=== PATIENT | female | born 1935 | race Caucasian/White ===

== ENCOUNTER → 2016-10-06 | Outpatient (CLI) | payer MEDICARE ==
[2016-01-21 14:00] VITALS: BP 146/78
[~2016-10-06] MED LIST: ASPI81TA9 PO; CLOP75TA27 PO; CONTRAST GIVEN MC PRN; FOLI1TAB16 PO; IOHEXOL 300 MG/ML 75 ML VIAL IV ONE; LIPITOR80 MG PO; METH2.5T PO; METO25TA9 PO; OMEP20CA5 PO; PROAIR HFA8.5 GM IH; TIOT18CA IH
[2016-10-06 08:16] LABS: CREATININE 0.9 mg/dL (0.6-1.0); GFR 59.8
--- NOTE | 2016-10-06 11:41 | RAD ---
Exam performed: CT chest with contrast. History: History of lung cancer, follow-up exam. Date of service: 10/06/16. Comparison: CT chest from 04/27/16. Technique: Contiguous helical acquisitions are obtained through the chest during intravenous administration of 75 cc of Omnipaque 300. Sagittal and coronal reformatted images are obtained and reviewed. Findings: Redemonstration of a right upper lobe pleural-based mass with adjacent erosive changes and chronic fracture involving the right third rib with streaky linear opacities extending up to the right hilum. Previously seen large right suprahilar lymph node appears significantly decreased in size. There is significantly decreased mass effect and nodularity in the right main bronchus as well as a bronchus intermedius. There is continued encasement of the right upper lobe pulmonary artery secondary to the enlarged lymph node however the significantly improved due to decreased size of the lymph node. No new lymph nodes are seen. The remainder lungs are essentially clear. There are emphysematous changes in both lungs. There are prominent interstitial changes in the apical segment right lower lobe, new since previous study. The heart size is within limits of normal without pericardial effusion. Atheromatous aortic and coronary calcification. There is a calcified nodule in the right lower lobe. Small hiatal hernia. Abdominal aortic aneurysm status post stent graft placement. Sclerotic abnormalities involving the thoracic spine at T10 and L1 remains similar. Impression: 1. Significant decrease in size of the right suprahilar lymph node with improved nodularity and mass effect on the adjacent bronchus intermedius. 2. Right upper lobe mass extending to the periphery of the chest wall with sclerosis /erosion and chronic fracture of the right third rib remains unchanged. 3. Minimal prominence of interstitial markings in the apical segment right upper lobe. These could be related to post therapeutic changes, however continued follow-up to rule out possibility of lymphangitic spread of tumor although is considered less likely given other areas of improvement.
== END | disposition home or self-care (01) ==
LOC: CT 07:42
PROVIDERS: ATTEND Radiology Radiation Oncology
DX: C34.90 Malignant neoplasm of unspecified part of unspecified bronchus or lung (principal)
CPT/HCPCS: 36415; 71260; 82565; Q9967

== ENCOUNTER → 2017-04-24 | Outpatient (CLI) | payer MEDICARE ==
[2016-01-21 14:00] VITALS: BP 146/78
[~2017-04-24] MED LIST changes: +ASPI-612 PO; -ASPI81TA9 PO; -CLOP75TA27 PO; +CLOP75TA57 PO; -CONTRAST GIVEN MC PRN; +IOHEXOL 300 MG/ML 75 ML VIAL ONE; +METO-239 PO; -METO25TA9 PO
--- NOTE | 2017-04-24 14:22 | RAD ---
Indication lung malignancy. Follow-up. Axial images through the chest were obtained. 75 cc of Omnipaque 300 was administered. Comparison is made to the previous examination 10/06/2016. Imaging through the upper abdomen shows no acute finding. Aortic stent graft is noted. There is a small hiatus hernia. There is a density in the right breast, image 23 series 2. This may reflect glandular tissue. If mammography has not been recently performed this should be considered. There is some coronary artery calcification. The thoracic aorta appears unremarkable. Significant hilar or mediastinal adenopathy is not seen. There are underlying emphysematous changes. There is a parenchymal opacity in the right upper lobe, increased relative to the prior study and soft tissue fullness in the right hilum. While these may be secondary to postradiation changes recurrent tumor is not entirely excluded. An additional change in the chest is not seen. A definite acute finding in the chest is not seen. IMPRESSION: Increasing volume loss in the right upper lobe with associated soft tissue opacity. Increasing hilar fullness. While these may be secondary to post radiation changes recurrent tumor is not entirely excluded. Possible nodule right breast. If mammography has not been recently performed this should be considered PQRS Compliance Statement: One or more of the following individualized dose reduction techniques were utilized for this examination: 1. Automated exposure control 2. Adjustment of the mA and/or kV according to patient size 3. Use of iterative reconstruction technique
== END | disposition home or self-care (01) ==
LOC: CT 08:24
PROVIDERS: ATTEND Radiology Radiation Oncology
DX: C34.11 Malignant neoplasm of upper lobe, right bronchus or lung (principal); I10 Essential (primary) hypertension; Z92.3 Personal history of irradiation
CPT/HCPCS: 71260; Q9967

== ENCOUNTER → 2017-10-25 | Outpatient (CLI) | payer MEDICARE ==
[2017-10-25] MEDS: IOHEXOL 300 MG/ML 100ML VIAL. IV (08:41)
== END | disposition home or self-care (01) ==
LOC: CT 08:02
DX: C34.90 Malignant neoplasm of unspecified part of unspecified bronchus or lung (principal); J43.9 Emphysema, unspecified; K44.9 Diaphragmatic hernia without obstruction or gangrene; M41.85 Other forms of scoliosis, thoracolumbar region; I70.0 Atherosclerosis of aorta; I25.10 Atherosclerotic heart disease of native coronary artery without angina pectoris; Z92.3 Personal history of irradiation
CPT/HCPCS: 71260; Q9967

== ENCOUNTER → 2017-11-02 | Outpatient (CLI) | payer MEDICARE | END | disposition home or self-care (01) | LOC: KCIC MAMMO 08:04 | DX: N63.10 Unspecified lump in the right breast, unspecified quadrant (principal); N64.89 Other specified disorders of breast; Z92.3 Personal history of irradiation; Z85.118 Personal history of other malignant neoplasm of bronchus and lung | CPT/HCPCS: 76641; 77066 ==

== ENCOUNTER → 2018-04-03 | Outpatient (CLI) | payer MEDICARE, OTHER ==
[2016-01-21 14:00] VITALS: BP 146/78
[~2018-04-03] MED LIST changes: -IOHEXOL 300 MG/ML 75 ML VIAL IV ONE; -IOHEXOL 300 MG/ML 75 ML VIAL ONE
--- NOTE | 2018-04-03 13:11 | KCIC ---
Three-view bilateral hand dated 04/03/2018. No comparison available. Clinical data indication: Pain. Pain for 20 years. Evaluate arthritis. FINDINGS: 3 views of left hand show normal bony alignment. No displaced fracture. There is mild degenerative change of the first carpometacarpal joint and scaphotrapezial joint. Mild degenerative changes of the interphalangeal joints throughout. No periostitis or bone destruction. No erosive changes are seen. 3 views of the right hand show normal bony alignment. No displaced fracture. Mild degenerative change of the first carpometacarpal joint and scaphotrapezial joint. There is also mild degenerative change of the interphalangeal joints throughout and the MCP joint of the thumb. No erosive changes or periostitis. No bone destruction. IMPRESSION: 1. No acute radiographic abnormality. 2. Multifocal osteoarthrosis as described above. Electronically signed by: Helder Rushing MD (04/03/2018 1:08 PM) [id number]
== END | disposition home or self-care (01) ==
LOC: KCIC 11:47
PROVIDERS: ATTEND Internal Medicine Rheumatology
DX: M19.042 Primary osteoarthritis, left hand (principal); M19.041 Primary osteoarthritis, right hand; I10 Essential (primary) hypertension; E78.00 Pure hypercholesterolemia, unspecified; I25.10 Atherosclerotic heart disease of native coronary artery without angina pectoris; K21.9 Gastro-esophageal reflux disease without esophagitis; J43.2 Centrilobular emphysema; Z87.891 Personal history of nicotine dependence; Z85.118 Personal history of other malignant neoplasm of bronchus and lung
CPT/HCPCS: 73130

== ENCOUNTER → 2018-05-02 | Outpatient (CLI) | payer OTHER ==
[2016-01-21 14:00] VITALS: BP 146/78
[~2018-05-02] MED LIST changes: +AMLO5TAB7 PO; +BENZ-8 PO; +CONTRAST GIVEN. MC PRN; +FAMO40TA4 PO; +IOHEXOL 300 MG/ML 100ML VIAL. IV ONE; +TRAM50TA PO; +UMEC1DIS IH
--- NOTE | 2018-05-02 18:06 | RAD ---
Examination: CT CHEST W/CONTRAST History: LUNG CA S/P TREATMENT INJ 75ML OMNI 300 PREV SENT Comparison/Correlation: 10/25/2017 CT chest with contrast Findings: Axial images of the chest were obtained following 75 cc Omnipaque 300 IV. Sagittal and coronal reformatted images were provided. Extensive emphysematous involvement of the lung dhaliwal identified. Right upper lobe atelectasis and retained secretions noted. This atelectasis extends from the right hilum to the right lateral pleural and along the right mediastinum and hilar level. Associated destructive involvement of the right third rib and fourth rib again seen. Sclerosis of the right second rib also seen. This process measures up to 7.9 cm x 3 cm x 4.3 cm longitudinal. Thoracic aorta is unremarkable for age. No enlarged thoracic lymph nodes in the interval. Upper abdominal aortic stent graft is partially seen. Impression: Right upper lobe atelectasis and retained secretions again seen. The portion which extends to the lateral pleura is decreased interval. Interval increase in atelectatic component extending along the mediastinum is seen in the interval however. Mass component is not well delineated within this process. There is no delineated new mass component although atelectasis is increase in the interval along the mediastinum. Electronically signed by: Adama James MD (05/02/2018 6:02 PM) [facility]
== END | disposition home or self-care (01) ==
LOC: CT 07:28
PROVIDERS: ATTEND Radiology Radiation Oncology
DX: C34.12 Malignant neoplasm of upper lobe, left bronchus or lung (principal); C34.91 Malignant neoplasm of unspecified part of right bronchus or lung; I10 Essential (primary) hypertension; E78.00 Pure hypercholesterolemia, unspecified; F17.200 Nicotine dependence, unspecified, uncomplicated
CPT/HCPCS: 71260; Q9967

== ENCOUNTER 2018-08-19 06:07 | Emergency (ER) | payer OTHER ==
[~2018-08-19] VITALS: Ht 157.5 cm; Wt 47.6 kg
[~2018-08-19 06:07] MED LIST changes: +ALBU2.5V8 IH; +AMLO5TAB10 PO; -AMLO5TAB7 PO; -CONTRAST GIVEN. MC PRN; -IOHEXOL 300 MG/ML 100ML VIAL. IV ONE; -PROAIR HFA8.5 GM IH
[2018-08-19] MEDS ORDERED: methylPREDNISolone SOD SUCC PF 125 MG/2 ML VIAL. IV ONE (06:15)
[2018-08-19 06:28] LABS: BASO % 1 % (0-3); EOS # 0.1 x10^3/uL (0.0-0.7); EOS % 2 % (0-3); HEMATOCRIT 37.9 % (36.0-47.0); HEMOGLOBIN 12.6 g/dL (12.0-15.5); LYMPH # 2.3 x10^3/uL (1.0-4.8); LYMPH % 34 % (24-48); MEAN CORPUSCULAR HEMOGLOBIN 26 pg (25-35); MEAN CORPUSCULAR HGB CONC 33 g/dL (31-37); MEAN CORPUSCULAR VOLUME 79 fL (79-100); MONO # 0.7 x10^3/uL (0.0-1.1); MONO % 10 % (0-9); NEUT # 3.6 x10^3uL (1.8-7.7); NEUT % 54 % (31-73); PLATELET COUNT 238 x10^3/uL (140-400); RED CELL DISTRIBUTION WIDTH 15.6 % (11.5-14.5); WHITE BLOOD COUNT 6.7 x10^3/uL (4.0-11.0)
[2018-08-19 06:44] LABS: CALCIUM 9.4 mg/dL (8.5-10.1); CREATININE 0.8 mg/dL (0.6-1.0); GFR 68.2; POTASSIUM 3.9 mmol/L (3.5-5.1)
[2018-08-19 06:50] LABS: ALBUMIN 2.4 g/dL (3.4-5.0); ALBUMIN/GLOBULIN RATIO 0.5 (1.0-1.7); TOTAL BILIRUBIN 0.3 mg/dL (0.2-1.0); TOTAL PROTEIN 7.6 g/dL (6.4-8.2)
[2018-08-19 07:10] LABS: BASE EXCESS ABG -1 mmol/L (-3-3); HCO3 ABG 24 mmol/L (21-28); PCO2 ABG 39 mmHg (35-46); PO2 ABG 73 mmHg (65-108); SAT O2 ABG 94 % (92-99)
[2018-08-19 07:15] LABS: FIO2 ABG 21%
--- NOTE | 2018-08-19 07:29 | PHYS DOC ---
Past Medical History Past Medical History: CAD, COPD, GERD, Hypertension, Other Additional Past Medical Histor: AAA Past Surgical History: Angioplasty Alcohol Use: None Drug Use: None Adult General Chief Complaint Chief Complaint: SHORTNESS OF BREATH HPI HPI Patient is a 83 year old female history of CAD, COPD who presents with acute onset shortness of air starting her hours prior to ED arrival. Patient states she woke short of breath. No fevers chills, nausea vomiting or sweats. Reports nonproductive cough. Denies increased leg pain or swelling. On EMS arrival, patient was hypoxic but rather breathing 25-30 times per minute. Breathing treatment given an IV established. Patient is a non-smoker.[] Review of Systems Review of Systems ROS as per HPI[] All other systems were reviewed and found to be within normal limits, except as documented in this note. Current Medications Current Medications Current Medications Medications (Trade) Dose Ordered Sig/Ron Start Time Stop Time Status Last Admin Dose Admin Albuterol/ Ipratropium (Duoneb) 3 ml 1X ONCE 08/19/18 07:30 08/19/18 07:32 DC 08/19/18 07:32 3 ML Furosemide (Lasix) 40 mg 1X ONCE 08/19/18 07:30 08/19/18 07:32 DC 08/19/18 08:03 40 MG Info (CONTRAST GIVEN -- Rx MONITORING) 1 each PRN DAILY PRN 08/19/18 08:15 08/21/18 08:14 Iohexol (Omnipaque 350 Mg/ml) 75 ml 1X ONCE 08/19/18 08:15 08/19/18 08:16 DC Methylprednisolone Sodium Succinate (SOLU-Medrol 125MG VIAL) 125 mg 1X ONCE 08/19/18 06:15 08/19/18 06:18 DC 08/19/18 07:22 125 MG Allergies Allergies Allergies Coded Allergies Type Severity Reaction Last Updated Verified Penicillins Allergy Severe Shortness of Air 01/21/16 Yes celecoxib Allergy Severe Hives 01/21/16 Yes Physical Exam Physical Exam Constitutional: Well developed, well nourished, no acute distress, non-toxic appearance. [] HENT: Normocephalic, atraumatic, bilateral external ears normal, oropharynx moist, no oral exudates, nose normal. [] Eyes: PERRLA, EOMI, conjunctiva normal, no discharge. [] Neck: Normal range of motion, no tenderness, supple, no stridor. [] Cardiovascular:Heart rate regular rhythm, no murmur [] Lungs & Thorax: Respirations nonlabored, coarse diminished breath sounds bilaterally.[] Abdomen: Bowel sounds normal, soft, no tenderness. [] Skin: Warm, dry, no erythema, no rash. [] Back: No tenderness. [] Extremities: No h/o dvt. [] Neurologic: Alert and oriented X 3, normal motor function, normal sensory function, no focal deficits noted. [] Psychologic: Affect normal, judgement normal, mood normal. [] Current Patient Data Vital Signs Vital Signs Date Time Temp Pulse Resp B/P (MAP) Pulse Ox O2 Delivery O2 Flow Rate FiO2 08/19/18 07:32 4 Room Air 08/19/18 06:07 98.9 107 18 183/85 (117) 98.9 Lab Values Laboratory Tests Test 08/19/18 06:16 08/19/18 06:50 White Blood Count 6.7 x10^3/uL (4.0-11.0) Red Blood Count 4.80 x10^6/uL (3.50-5.40) Hemoglobin 12.6 g/dL (12.0-15.5) Hematocrit 37.9 % (36.0-47.0) Mean Corpuscular Volume 79 fL (79-100) Mean Corpuscular Hemoglobin 26 pg (25-35) Mean Corpuscular Hemoglobin Concent 33 g/dL (31-37) Red Cell Distribution Width 15.6 % (11.5-14.5) H Platelet Count 238 x10^3/uL (140-400) Neutrophils (%) (Auto) 54 % (31-73) Lymphocytes (%) (Auto) 34 % (24-48) Monocytes (%) (Auto) 10 % (0-9) H Eosinophils (%) (Auto) 2 % (0-3) Basophils (%) (Auto) 1 % (0-3) Neutrophils # (Auto) 3.6 x10^3uL (1.8-7.7) Lymphocytes # (Auto) 2.3 x10^3/uL (1.0-4.8) Monocytes # (Auto) 0.7 x10^3/uL (0.0-1.1) Eosinophils # (Auto) 0.1 x10^3/uL (0.0-0.7) Basophils # (Auto) 0.0 x10^3/uL (0.0-0.2) Sodium Level 138 mmol/L (136-145) Potassium Level 3.9 mmol/L (3.5-5.1) Chloride Level 101 mmol/L (98-107) Carbon Dioxide Level 26 mmol/L (21-32) Anion Gap 11 (6-14) Blood Urea Nitrogen 11 mg/dL (7-20) Creatinine 0.8 mg/dL (0.6-1.0) Estimated GFR (Cockcroft-Gault) 68.2 BUN/Creatinine Ratio 14 (6-20) Glucose Level 137 mg/dL (70-99) H Calcium Level 9.4 mg/dL (8.5-10.1) Total Bilirubin 0.3 mg/dL (0.2-1.0) Aspartate Amino Transferase (AST) 15 U/L (15-37) Alanine Aminotransferase (ALT) 11 U/L (14-59) L Alkaline Phosphatase 110 U/L (46-116) Troponin I Quantitative < 0.017 ng/mL (0.000-0.055) ZP-Epc-T-Type Natriuretic Peptide 811 pg/mL (0-449) H Total Protein 7.6 g/dL (6.4-8.2) Albumin 2.4 g/dL (3.4-5.0) L Albumin/Globulin Ratio 0.5 (1.0-1.7) L O2 Saturation 94 % (92-99) Arterial Blood pH 7.41 (7.35-7.45) Arterial Blood pCO2 at Patient Temp 39 mmHg (35-46) Arterial Blood pO2 at Patient Temp 73 mmHg (65-108) Arterial Blood HCO3 24 mmol/L (21-28) Arterial Blood Base Excess -1 mmol/L (-3-3) FiO2 21% Laboratory Tests 08/19/18 06:16 Laboratory Tests 08/19/18 06:16 EKG EKG [EKG: reviewed] Radiology/Procedures Radiology/Procedures [CXR: CTA: No PE, right suprahilar consulted parenchymal opacities suspected associated/recurrent mass with parenchymal consolidation. PET/CT evaluation recommended] Course & Med Decision Making Course & Med Decision Making Pertinent Labs and Imaging studies reviewed. (See chart for details) [Breathing treatment, steroids, Lasix given with some improvement. Patient increased air movement, no wheezing on re-exam. Patient remains mildly tachypnea. Patient recommended but declined. Patient prefers to follow-up her PCP. Case discussed with Dr. Akins on on-call for Dr. Martinez. Dr. Rockwell available to see Dr. Rockwell is available to see to patient later this week or Dr. Martinez next week. Will tx empirically. Return precautions reviewed. ] Dragon Disclaimer Dragon Disclaimer This electronic medical record was generated, in whole or in part, using a voice recognition dictation system. Departure Departure Impression: Primary Impression: COPD exacerbation Additional Impressions: Abnormal CT scan, chest Congestive cardiac failure Disposition: HOME, SELF-CARE Condition: GOOD Referrals: LEIGH MARTINEZ MD (PCP) Patient Instructions: Chronic Obstructive Pulmonary Disease Exacerbation, Easy- to-Read Additional Instructions: You were evaluated emergency department for shortness of air. Lab and imaging studies were performed. CT scan was abnormal and requires reviewed with primary care physician. Please take steroids, antibiotics and diuretics as directed. Continue home inhaler and use 1-2 puffs every 2-4 hours as needed. Contact Dr. Mable Rockwell collections curator for Dr. Martinez and schedule an office appointment later this week. Him, he develop new or worsening symptoms, return to the emergency department. Scripts Furosemide (LASIX) 20 Mg Tablet 1 TAB PO DAILY, #3 TAB 1 Refill Prov: FEDERICO HOLLIDAY DO 08/19/18 Prednisone (PREDNISONE) 50 Mg Tablet 1 TAB PO DAILY, #5 TAB Prov: FEDERICO HOLLIDAY DO 08/19/18 Doxycycline Hyclate (DOXYCYCLINE HYCLATE) 100 Mg Tablet 1 TAB PO BID, #20 TAB Prov: FEDERICO HOLLIDAY DO 08/19/18 Problem Qualifiers FEDERICO HOLLIDAY DO Aug 19, 2018 07:29
[2018-08-19] MEDS ORDERED: FUROSEMIDE 40 MG/4 ML VIAL. IVP ONE (07:30)
[2018-08-19] MEDS ORDERED: IPRATRPIUM/ALBUTEROL 0.5/2.5MG 3 ML NEBU. NEB ONE (07:30)
--- NOTE | 2018-08-19 07:33 | EKG ---
[facility] [address] [place] [address] Test Date: 2018-08-19 Test Time: 06:52:38 Pat Name: CYNDI CLOUD Department: Room: Gender: F Hse Coordinator: : [id number] Requested By: FEDERICO HOLLIDAY Order Number: [id number] Reading MD: Robert Hussein MD Measurements Intervals [place] Rate: 110 P: SD: QRS: -28 QRSD: 78 T: 92 QT: 332 QTc: 454 Interpretive Statements SINUS TACHYCARDIA non-specific st/t changes Electronically Signed On 08-20-2018 12:12:54 [employer]GANIC EXTRACTIONS TECHNICIAN by Robert Hussein MD
--- NOTE | 2018-08-19 07:44 | RAD ---
Portable chest, 08/19/2018: HISTORY: Chest pain, shortness of breath, cough, lung cancer Comparison is made to a CT study from 05/02/2018. The heart size is within normal limits. There is calcific plaquing the aorta. There are scattered parenchymal scars. There is an ongoing abnormal right upper lobe opacity with volume loss extending from the hilum to the pleura laterally. This most likely represents residual tumor and associated atelectasis/consolidation in this patient with a history of lung cancer. No new pulmonary abnormality is seen. There is no evidence of pleural fluid. There are surgical clips in the lower neck bilaterally. The upper end of an aortic stent is partially visualized in the upper abdomen. IMPRESSION: 1. Ongoing abnormal right upper lobe opacities suggesting a combination of residual neoplasm and associated atelectasis/consolidation. CT scanning would best define this process and evaluate stability, if clinically indicated. 2. No new pulmonary infiltrate is seen. Electronically signed by: Carlitos Vargas MD (08/19/2018 7:40 AM) [facility]
[2018-08-19] MEDS ORDERED: CONTRAST GIVEN. MC PRN (08:15)
[2018-08-19] MEDS ORDERED: IOHEXOL 350 MG/ML 100 ML VIAL. IV ONE (08:15)
--- NOTE | 2018-08-19 08:55 | RAD ---
EXAM: CT chest with contrast - pulmonary embolus protocol CLINICAL HISTORY: CP, ? lung mass, concern for PE COMPARISON: CT 05/02/2018, 10/25/2017. TECHNIQUE: CT of the chest following the administration of intravenous contrast during the pulmonary arterial phase. Axial, coronal and sagittal reformatted images were generated including MIP images. ---PQRS compliance statement - One or more of the following individualized dose reduction techniques were utilized for this study: 1. Automated exposure control 2. Adjustment of the mA and/or kV according to patient size 3. Use of iterative reconstruction technique--- FINDINGS: CHEST: Diagnostic quality: Borderline Suboptimal based on phase of contrast and respiratory motion artifact. Pulmonary emboli: No pulmonary emboli to the level of the subsegmental branches. More peripheral vessels are not well assessed. Right heart strain: None Pulmonary arteries: Normal in caliber. Trace pericardial fluid is likely physiologic. Heart is not enlarged. Coronary artery calcifications are seen. Trace right pleural effusion. No left pleural effusion. No pneumothorax. Emphysematous changes are seen. Right hilar soft tissue prominence with associated postobstructive atelectasis is seen, extending from the right suprahilar region to the right superior, lateral pleural surface. Compared to 05/02/2018, the parenchymal consolidative opacities in the right lung with associated atelectasis has increased in size. Accurate measurement is precluded based on technique however this measures approximately 8.6 x 6.8 x 5 cm compared to 7.9 x 4.3 x 3 cm. A 1.1 x 0.8 cm (series 3 image 69) is more prominent on today's examination, previously measuring 1 x 0.5 cm. A spiculated left upper lobe/lingular mass measures 0.8 x 0.5 cm (series 3 image 80), previously 0.6 x 0.5 cm when measured in a similar fashion. Visualized Upper abdomen: Aortic calcifications are seen with associated stent partially visualized within the aorta. Heterogeneous perfusion of the spleen, likely from phase of contrast. Focal low-attenuation at the falciform ligament within the liver, possibly focal fatty infiltration. Otherwise no discrete hepatic lesion is seen within the visualized portions of the liver. Small hiatal hernia. Bones: Adjacent to the parenchymal consolidation in the right lung, the right third and fourth ribs appear mottled, likely from destructive process. Diffusely decreased bone mineral density. Osseous structures left fifth and sixth rib fractures are chronic. However evaluation of the osseous structures is limited given degree of osteopenia and submitted MIP images IMPRESSION: 1. On this mildly limited exam, no evidence for acute pulmonary embolus. 2. The right suprahilar consolidative parenchymal opacities with associated volume loss/atelectasis has increased in size. Given the progressive increase in size and soft tissue density at the hilum and right perihilar region, associated/recurrent mass is suspected. If further evaluation is necessary, consider PET/CT evaluation 3. Enlarging lingular/left upper lobe lung nodules. These can also be further evaluated on the PET/CT scan. Electronically signed by: Alvaro Cox MD (08/19/2018 8:51 AM) [email or web address]
[2018-08-19] MEDS ORDERED: DOXY100T PO (09:25)
[2018-08-19] MEDS ORDERED: PRED50TA PO (09:25)
[2018-08-19] MEDS ORDERED: FURO-69 PO (09:25)
[2018-08-19 09:30] VITALS: BP 143/95
[2018-09-24] MEDS ORDERED: OSEL30CA PO (08:59)
[2018-09-24] MEDS ORDERED: PRED20TA PO (09:01)
[2018-10-02] MEDS ORDERED: ALBU2.5V14 NEB (09:56)
== END 2018-08-19 09:50 | disposition home or self-care (01) ==
LOC: ER 06:07
DX: J44.1 Chronic obstructive pulmonary disease with (acute) exacerbation (principal); I11.0 Hypertensive heart disease with heart failure; I50.9 Heart failure, unspecified; R91.8 Other nonspecific abnormal finding of lung field
CPT/HCPCS: 36415; 36600; 71045; 71275; 80053; 82805; 83880; 84484; 85025; 93005; 94640; 96374; 96375; 99284; J1940; J2930; J7620; Q9967

== ENCOUNTER 2018-10-19 11:10 | Emergency (ER) | payer OTHER ==
[2018-09-24 11:50] VITALS: BP 140/77
[~2018-10-19 11:10] MED LIST changes: +ALBU2.5V14 NEB; +DOXY100T PO; +FURO-69 PO; +OSEL30CA PO; +PRED20TA PO; +PRED50TA PO
--- NOTE | 2018-10-19 11:42 | PHYS DOC ---
Past Medical History Past Medical History: No Pertinent History, CAD, COPD, Diverticulosis, GERD, Hypertension, Other Additional Past Medical Histor: AAA Past Surgical History: Angioplasty Alcohol Use: None Drug Use: None Adult General Chief Complaint Chief Complaint: OTHER COMPLAINTS HPI HPI Patient is a 83 year old f with hx of COPD who was brought in by family from home in a minivan apparently has not been eating last 3 days. On arrival in the parking lot nursing staff that was trying to get the patient out of the car noticed that she was not breathing and had no pulse. I rapidly spoke with the family and confirmed that this patient does not want any CPR she is a DNR is at the family room with me even before the patient is checked in and he confirms that patient recently told him this there is no paperwork to confirm it but he is certain of her wishes. Review of Systems Review of Systems History limited by the acuity of condition Allergies Allergies Allergies Coded Allergies Type Severity Reaction Last Updated Verified Penicillins Allergy Severe Shortness of Air 01/21/16 Yes celecoxib Allergy Severe Hives 01/21/16 Yes Physical Exam Physical Exam Constitutional: Cachectic obtunded pale HENT: Normocephalic, atraumatic, bilateral external ears normal, oropharynx moist, no oral exudates, nose normal. [] Eyes: Fixed dilated pupils Neck: Normal range of motion, no tenderness, supple, no stridor. [] Cardiovascular: No pulse Lungs & Thorax: No breath sounds Extremities: No tenderness, no cyanosis, no clubbing, ROM intact, no edema. [] Neurologic: Obtunded EKG EKG [] Radiology/Procedures Radiology/Procedures [] Course & Med Decision Making Course & Med Decision Making Pertinent Labs and Imaging studies reviewed. (See chart for details) []Time of 11:15 AM. Patient was on arrival even in the private car in the parking lot was obvious that she was pulseless. Family confirmed immediately patient does not want any aggressive measures no CPR. Apparently when he left the house she was still breathing but then became unconscious on the way over condolences were provided Dragon Disclaimer Dragon Disclaimer This electronic medical record was generated, in whole or in part, using a voice recognition dictation system. Departure Departure Impression: Primary Impression: Cardiac arrest Referrals: LEIGH DELVALLE MD (PCP) JARRELL PATEL MD Oct 19, 2018 11:42
== END 2018-10-19 13:51 | disposition expired ==
LOC: ER 11:10
DX: I46.9 Cardiac arrest, cause unspecified (principal); J44.9 Chronic obstructive pulmonary disease, unspecified; I25.10 Atherosclerotic heart disease of native coronary artery without angina pectoris; K21.9 Gastro-esophageal reflux disease without esophagitis; I10 Essential (primary) hypertension; Z95.5 Presence of coronary angioplasty implant and graft; Z88.0 Allergy status to penicillin; Z88.8 Allergy status to other drugs, medicaments and biological substances
CPT/HCPCS: 99285-25